=== PATIENT | female | born 1950 | race Caucasian/White ===

== ENCOUNTER 2017-03-08 09:29 | Day surgery (SDC) | payer OTHER ==
[2017-03-08] MEDS ORDERED: PLEASE ENTER HEIGHT AND WEIGHT MC SCH (10:00)
[2017-03-08] MEDS ORDERED: SODIUM CHLORIDE 0.9% 1,000 ML IV SCH (10:00)
[2017-03-08] MEDS ORDERED: METO50TA82 PO (10:04)
[2017-03-08] MEDS ORDERED: CINN500C2 PO (10:04)
[2017-03-08] MEDS ORDERED: METF-649 PO (10:04)
[2017-03-08] MEDS ORDERED: USTE45DI INJ (10:04)
[2017-03-08] MEDS ORDERED: CHOL100011 PO (10:04)
[2017-03-08] MEDS ORDERED: MULT-336 PO (10:04)
[2017-03-08] MEDS ORDERED: FLAX1OIL PO (10:04)
[2017-03-08] MEDS ORDERED: LORA10TA72 PO (10:04)
[2017-03-08] MEDS ORDERED: UBID100C41 PO (10:04)
[2017-03-08] MEDS ORDERED: TIMO1DRO2 EACHEYE (10:04)
[2017-03-08] MEDS ORDERED: OMEG1CAP23 PO (10:04)
[2017-03-08] MEDS ORDERED: IRBE75TA10 PO (10:04)
[2017-03-08] MEDS ORDERED: L.AC1CAP6 PO (10:04)
[2017-03-08] MEDS ORDERED: RIVA20TA PO (10:04)
[2017-03-08] MEDS ORDERED: MAGN400T26 PO (10:04)
[2017-03-08] MEDS ORDERED: PROPOFOL 10 MG/ML, 20ML ONE (11:31)
== END 2017-03-08 13:16 ==
LOC: CACL 09:29
PROVIDERS: ATTEND Internal Medicine Cardiovascular Disease
DX: I48.91 Unspecified atrial fibrillation (principal); I10 Essential (primary) hypertension; E78.5 Hyperlipidemia, unspecified; I63.9 Cerebral infarction, unspecified; Z86.73 Personal history of transient ischemic attack (TIA), and cerebral infarction without residual deficits; Z88.5 Allergy status to narcotic agent; Z88.8 Allergy status to other drugs, medicaments and biological substances; Z79.82 Long term (current) use of aspirin
CPT/HCPCS: 93312; 93321; 93325; J2704

== ENCOUNTER → 2018-09-04 | Outpatient (CLI) | payer OTHER, MEDICARE ==
[~2018-09-04] MED LIST: CHOL100011 PO; CINN500C2 PO; FLAX1OIL PO; IRBE75TA10 PO; L.AC1CAP6 PO; LORA10TA72 PO; MAGN400T26 PO; METF-649 PO; METO50TA82 PO; MULT-336 PO; OMEG1CAP23 PO; RIVA20TA PO; TIMO1DRO2 EACHEYE; UBID100C41 PO; USTE45DI INJ
== END | disposition home or self-care (01) ==
LOC: CFH 08:06
PROVIDERS: ATTEND Internal Medicine Cardiovascular Disease
DX: R94.31 Abnormal electrocardiogram [ECG] [EKG] (principal); I63.9 Cerebral infarction, unspecified; I10 Essential (primary) hypertension; E11.9 Type 2 diabetes mellitus without complications
CPT/HCPCS: 78452; 93017; A9502

== ENCOUNTER → 2019-05-13 | Outpatient (CLI) | payer MEDICARE ==
[~2019-05-13] MED LIST changes: +REGADENOSON 0.4 MG/5 ML SYRINGE ONE
== END | disposition home or self-care (01) ==
LOC: CFH 08:48
PROVIDERS: ATTEND Internal Medicine Cardiovascular Disease
DX: R07.89 Other chest pain (principal)
CPT/HCPCS: 78452; 93017; A9502; J2785